=== PATIENT | female | born 1990 | race Caucasian/White ===

== ENCOUNTER 2018-04-03 20:34 | Emergency (ER) | payer BC ==
[~2018-04-03] VITALS: Ht 170.2 cm; Wt 104.3 kg
[2018-04-03] MEDS ORDERED: IBUPROFEN 800800 M1 PO ×3 (21:16→21:20)
[2018-04-03] MEDS ORDERED: CRUTCHES MISCELL (21:31)
[2018-04-03 21:52] VITALS: BP 121/72
== END 2018-04-03 21:53 | disposition home or self-care (01) ==
LOC: M.ERS 20:34
DX: S93.491A Sprain of other ligament of right ankle, initial encounter (principal); W01.0XXA Fall on same level from slipping, tripping and stumbling without subsequent striking against object, initial encounter; Y93.89 Activity, other specified; Y92.89 Other specified places as the place of occurrence of the external cause; Y99.8 Other external cause status

== ENCOUNTER → 2018-10-11 | Outpatient (CLI) | payer BC ==
[~2018-10-11] MED LIST: CRUTCHES MISCELL; IBUPROFEN 800800 M1 PO
== END ==
LOC: M.ULTRA 10-02 15:30
DX: R22.2 Localized swelling, mass and lump, trunk (principal)